=== PATIENT | female | born 1935 | race African-American/Black ===

== ENCOUNTER → 2018-12-11 | Outpatient (CLI) | payer MEDICARE ==
[2018-12-11 09:53] LABS: ABG HCO3 27 mmol/L (23-28); ABG PCO2 43 mmHg (41-51); ABG PH 7.41 (7.31-7.41); ABG PO2 81 mmHg (80-105)
== END ==
LOC: RESP 09:05
PROVIDERS: ATTEND Internal Medicine
DX: J44.9 Chronic obstructive pulmonary disease, unspecified (principal); G47.34 Idiopathic sleep related nonobstructive alveolar hypoventilation
CPT/HCPCS: 36415; 82805